=== PATIENT | female | born 1945 | race Caucasian/White ===

== ENCOUNTER 2017-06-29 09:20 | Outpatient (CLI) | payer OTHER ==
[~2017-06-29 09:20] MED LIST: CATAFLAM50 MG PO; GLIPIZIDE10 MG; GLUCOSAMINE CHO1 CA2; SIMVASTATIN20 MG
== END 2017-06-29 09:23 | disposition home or self-care (01) ==
LOC: RAD 501 09:20
DX: M25.562 Pain in left knee (principal)

== ENCOUNTER 2024-04-07 20:57 | Emergency (ER) | payer OTHER ==
[~2024-04-07] VITALS: Ht 160 cm; Wt 73.5 kg
[2024-04-07] MEDS ORDERED: BISOPROLOL FUMAR5 MG PO (21:52)
[2024-04-07] MEDS ORDERED: GLIPIZIDE XL10 MG (21:53)
[2024-04-07] MEDS ORDERED: EZALLOR SPRINKL20 MG PO (21:53)
[2024-04-07] MEDS ORDERED: DIALYVITE TABL1 EACH PO (21:53)
[2024-04-07] MEDS ORDERED: COZAAR100 MG PO (21:53)
[2024-04-07] MEDS ORDERED: GLUMETZA500 MG PO (21:53)
[2024-04-07] MEDS ORDERED: HORIZANT300 MG PO (21:54)
[2024-04-07] MEDS ORDERED: AMLODIPINE-OLM1 EAC2 PO (21:54)
[2024-04-07] MEDS ORDERED: cloNIDine HCL 0.2 MG TABLET PO ONE (23:30)
[2024-04-08] MEDS ORDERED: OMEPRAZOLE40 MG PO (01:46)
== END 2024-04-08 02:06 ==
LOC: ER 20:59
DX: I10 Essential (primary) hypertension (principal); E11.9 Type 2 diabetes mellitus without complications; Z79.84 Long term (current) use of oral hypoglycemic drugs

== ENCOUNTER 2024-04-14 09:32 | Outpatient (CLI) | payer OTHER ==
[~2024-04-14 09:32] MED LIST changes: +AMLODIPINE-OLM1 EAC2 PO; +BISOPROLOL FUMAR5 MG PO; +COZAAR100 MG PO; +DIALYVITE TABL1 EACH PO; +EZALLOR SPRINKL20 MG PO; +GLIPIZIDE XL10 MG; +GLUMETZA500 MG PO; +HORIZANT300 MG PO; +OMEPRAZOLE40 MG PO
== END 2024-04-14 09:39 | disposition home or self-care (01) ==
LOC: RAD 09:32
PROVIDERS: ATTEND Anesthesiology Pain Medicine
DX: M25.562 Pain in left knee (principal); M25.561 Pain in right knee